=== PATIENT | male | born 1955 | race Caucasian/White ===

== ENCOUNTER 2020-07-20 15:48 | Observation (INO) | payer BC ==
[2020-07-20 17:46] LABS: #Eosinphils 0.1 thou/uL (0.0-0.7); #Lymphocytes 2.1 thou/uL (1.20-3.40); #Monocytes 0.5 thou/uL (0.11-0.59); #Neutrophils 4.6 thou/uL (1.40-6.50); %Basophils 0.6 % (0.0-1.0); %Eosinophils 1.6 % (0.0-10.0); %Lymphocytes 28.6 % (21.0-51.0); %Monocytes 6.5 % (0.0-10.0); %Neutrophils 62.8 % (42.0-75.0); Hemoglobin 14.9 g/dL (14.0-18.0); Mean Corpuscular HGB CONC 33.4 g/dL (32.0-36.0); Mean Corpuscular Hemoglobin 31.2 pg (27.0-31.0); Mean Corpuscular Volume 93.4 fL (78.0-98.0); Mean Platelet Volume 9.5 fL (7.4-10.4); Platelet Count 194 thou/uL (130-400); RBC Distribution Width 12.5 % (11.5-14.5); Red Blood Cell (RBC) Count 4.76 mill/uL (4.70-6.10); White Blood Cell (WBC) Count 7.4 thou/uL (4.8-10.8)
[2020-07-20 18:00] LABS: ALT (SGPT) 29 U/L (8-55); AST (SGOT) 22 U/L (5-34); Albumin 4.3 g/dL (3.4-4.8); Alkaline Phosphatase 64 U/L (40-110); Anion Gap 12 mmol/L (10-20); BUN (Urea Nitrogen) 21 mg/dL (8.4-25.7); Bilirubin, Total 0.5 mg/dL (0.2-1.2); Calc. Creatinine Clearance 0 mL/min (70-130); Carbon Dioxide 21 mmol/L (23-31); Chloride 108 mmol/L (98-107); Glucose 90 mg/dL (80-115); Protein, Total 7.3 g/dL (5.8-8.1); Sodium 137 mmol/L (136-145)
[2020-07-20 18:10] VITALS: BMI 37.0
[2020-07-20 19:34] LABS: SARS-CoV-2 NAA Rapid Test Not Detected (NotDetected)
[2020-07-21] MEDS ORDERED: Nitroglycerin 100MG/250ML BOT 250 ML ONE (06:42)
[2020-07-21] MEDS ORDERED: Verapamil 5 MG/2 ML VIAL ONE (06:42)
[2020-07-21] MEDS ORDERED: Lidocaine 1% (PF) 30 ML VIAL ONE (06:42)
[2020-07-21] MEDS ORDERED: Heparin 10,000 UNITS/ 10 ML VIAL ONE ×2 (06:42→08:18)
[2020-07-21] MEDS ORDERED: Fentanyl 100 MCG/2 ML VIAL ONE (07:19)
[2020-07-21] MEDS ORDERED: Midazolam HCl 2 mg/2 ml Vial ONE (07:19)
[2020-07-21] MEDS ORDERED: Adenosine 6 MG/2 ML VIAL ONE (07:43)
[2020-07-21] MEDS ORDERED: Clopidogrel Bisulfate 300 MG TAB ONE (08:16)
[2020-07-21] MEDS ORDERED: Sodium Chloride 0.9% 1,000 ML IV SCH (08:30)
[2020-07-21] MEDS ORDERED: Iopamidol 370 76% 100 ML VIAL ONE (11:36)
--- NOTE | 2020-07-21 14:06 | PRG ---
DATE OF SERVICE: 07/21/2020 REQUESTING PHYSICIAN: Dr. Shah. SUBJECTIVE: Mr. Fischer seems to be doing fair after his left heart catheterization. He has no bleeding issues. No stroke-like symptoms. No recurrent palpitation. OBJECTIVE DATA: VITAL SIGNS: The blood pressure is 147/90, heart rate 76, respirations 18, and temperature 97.5 degrees Fahrenheit. GENERAL: He is an alert and oriented man, in no apparent distress. NECK: Supple. Jugular vein is not distended. CHEST: Coarse without crackles. HEART: Sounds are regular to rate and rhythm. No murmur or gallop. ABDOMEN: Benign. Bowel sounds positive. EXTREMITIES: Lower extremities without edema, clubbing, or cyanosis. Pulses are adequate. NEUROLOGIC: The patient is nonfocal. MUSCULOSKELETAL: Without joint swelling deformity. SKIN: Without rash. DATABASE: The telemetry strips were reviewed, revealing continuous sinus rhythm. No tachy or bradyarrhythmias are detected. The left heart catheterization was reviewed revealing circumflex territory stenosis status post stent placement by Dr. Shah this morning. 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 He has had recurrent syncopal spells in the fall, but now he presents with an episode of wide-complex tachyarrhythmia. The rhythm strips available to me makes it difficult to discern between ventricular tachycardia or supraventricular tachycardia with aberration. I explained these findings to him. Now, he has been freshly revascularized as per Dr. Shah's procedure. We discussed the option of expedited EP study to aid the diagnosis of the tachycardia. On the other hand, if it is fresh re-vascularization and plavix load, extensive EP procedures may not be optimally done today. At this point, he would prefer postponing this diagnostic and possibly invasive therapeutic intervention. I discussed the potential risk of recurrent tachyarrhythmias and the LifeVest therapy as a strong consideration for him. Also, will need to be monitored for bradyarrhythmias with the Life Vest monitor. Low-dose jacklyn likely would be reasonable to resume at metoprolol 25 mg twice a day. At this point, I would avoid amiodarone for current treatment. Should further tachyarrhythmia occur, he will clearly need to expedite the above procedures. Would like to see him back in the next 4 to 6 weeks. Discussed these issues with Dr. Shah and we are in agreement. Thank you again for allowing me to participate in the care of this patient. Job ID: [id number] MTDD
--- NOTE | 2020-07-21 14:27 | DIS ---
DATE OF ADMISSION: 07/20/2020 DATE OF DISCHARGE: 07/21/2020 DISCHARGE DIAGNOSES: 1. Sustained ventricular tachycardia. 2. Coronary artery disease. CONSULTATION: EP. PROCEDURE PERFORMED: Coronary angiography with stent placement to the circumflex artery with a 3 x 16 mm Synergy stent. HOSPITAL COURSE: Mr. Fischer is a very pleasant 65-year-old gentleman, who recently presented to an outpatient hospital with sustained wide-complex tachycardia suggesting ventricular tachycardia. He was given amiodarone. He was stabilized and discharged the following day. He followed up with us the day after discharge. After review of his EKG, which was very suggestive of ventricular tachycardia, it was decided to proceed with the admission. Mr. Fischer did have a previous stress study suggesting ischemia to the inferior wall. He underwent coronary angiography on 07/21/2020 and was found to have severe disease present of the circumflex artery. He underwent successful stent placement with a 3.0 x 16 mm stent. EP was consulted for possible EP study. Based on his high-dose Plavix for stent placement and heparin, it was decided to proceed with LifeVest and see if the patient has recurrent episodes after revascularization. The patient is to follow up with Dr. Garcia for further recommendations. DISCHARGE MEDICATIONS: 1. Plavix 75 q.a.m. 2. Aspirin 81 q.a.m. 3. Lipitor 40 at bedtime. 4. Metoprolol 25 b.i.d. CONDITION ON DISCHARGE: Stable. Job ID: [id number]
--- NOTE | 2020-07-21 14:46 | CON ---
DATE OF CONSULTATION: 07/20/2020 REASON FOR CONSULTATION: I am seeing Mr. Fischer at our [facility] office for electrophysiology consultation. His problems are: 1. Recurrent syncopal spells. 2. Rhythm strip documented wide-complex tachycardia. 3. Chronic right bundle-branch block with left axis deviation. 4. History of normal LVEF by recent echocardiogram at Dr. Shah's office per his report. 5. History of hypertension. ALLERGIES: NONE NOTED. MEDICATIONS: At home, included: 1. Aspirin 325 mg daily. 2. Losartan 100 mg a day. 3. Metoprolol tartrate 25 mg twice a day. SUBJECTIVE: Mr. Fischer is here directly admitted by Dr. Shah from his office today. This gentleman has had recurrent syncopal spells and was evaluated by Dr. Shah back last fall. At that point, negative workup was found as per the patient's report. He was on chronic beta-jacklyn therapy due to his bifascicular block. Beta-jacklyn medications were stopped despite he had an episode of rapid palpitations, associated near syncopal spell, chest tightness sensation as of two days ago. He was evaluated at the [facility] where pediatric dental assistant has seen him and recommended possible EP evaluation later. He decided to come to Dr. Shah's office for further evaluation and he was subsequently admitted. Plans are made for left heart catheterization tomorrow. Currently, he has no palpitations, dizziness, loss of consciousness. No chest pains or CHF like symptoms. No fever, chills, or cough. REVIEW OF SYSTEMS: Rest of 12-point review of systems otherwise unremarkable. PAST MEDICAL HISTORY: As above, he had no prior history of symptomatic heart disease or heart attacks. SOCIAL HISTORY: The patient is a nonsmoker. Denies EtOH or drug abuse. He is a retired intensive care nurse. FAMILY HISTORY: Not contributory, but is positive for coronary artery disease and stroke and cancer of the mother and coronary artery disease and stroke of the father. OBJECTIVE DATA: VITAL SIGNS: Blood pressure is 142/91, heart rate 80, respirations 18, and temperature 98.3 degrees Fahrenheit. GENERAL: This is an alert and oriented man, in no apparent distress. NECK: Supple. Jugular veins not distended. CHEST: Coarse without crackles. HEART: Sounds are regular to rate and rhythm. No murmur or gallop. ABDOMEN: Benign. Bowel sounds are positive. EXTREMITIES: Lower extremities without edema, clubbing, or cyanosis. Pulses are adequate. NEUROLOGIC: The patient is nonfocal. MUSCULOSKELETAL: Without joint swelling or deformities. SKIN: Without rash. DATABASE: BMI is 37 with weight 265 pounds. The EKG is reviewed, revealing sinus rhythm, first-degree AV block, right bundle-branch block with slight left axis deviation is seen. The telemetry so far reveals sinus rhythm LABORATORY DATA: White count 7.4, hemoglobin 20.9, and platelet count is 194. Sodium 137, potassium 4, BUN is 21, and creatinine 1.27. The telemetry strips from the patient's during the episode of tachycardia were reviewed, revealing a wide-complex tachycardia with difficult to ascertain PVA. Only single lead is available and no clear clues regarding ventricular tachycardia versus SVT with aberration can be elicited. ASSESSMENT AND PLAN: Mr. Fischer is a pleasant 65-year-old gentleman with history of hypertension and history of preserved left ventricular ejection fraction, who presented after a near-syncopal spell with rapid heartbeat. He has prior history of recurrent syncopal spell last fall, at which point bradycardia with his baseline bifascicular block was suspected as tacos and his beta blockers were stopped. Now being off beta blockers, these rapid tachyarrhythmia occurred with ventricular rates in the 180s. I discussed these issues with him. The exact etiology of his wide-complex arrhythmia is unclear. He has been evaluated in [place]. He was told he may have a supraventricular tachycardia. Due to the wider complex beats, ventricular tachycardia is difficult to rule out. Based on these, Dr. Shah is planning invasive ischemic evaluation with left heart catheterization tomorrow. Providing no significant coronary artery disease or revascularization lesions are found, he may benefit from an EP study for evaluate inducibility of ventricular tachycardia versus SVT. Depending on the findings, either ablation or device therapy could be considered. The study to evaluate his conduction system is based on the baseline trifascicular block. I explained the rationale, risks, and benefits of this procedure, said he understands clearly hence his medical background and willing to proceed. We will keep him n.p.o. after left heart catheterization tomorrow. Thank you again for letting me to participate in the care of this pleasant gentleman. Job ID: [id number]
[2020-07-21 19:35] VITALS: BP 135/82; TEMP 98.3
--- NOTE | 2020-07-21 20:38 | EKG ---
Test Reason : POST STENT Blood Pressure : / mmHG Vent. Rate : 067 BPM Atrial Rate : 067 BPM P-R Int : 228 ms QRS Dur : 128 ms QT Int : 450 ms P-R-T Axes : 014 -71 -01 degrees QTc Int : 475 ms Sinus rhythm with 1st degree A-V block Left axis deviation Right bundle branch block Inferior infarct , age undetermined Abnormal ECG Confirmed by Jerry KHALIL ([id number]) on 07/21/2020 8:38:01 PM Referred By: COLLINS Confirmed By:Jerry KHALIL
[2020-07-21] MEDS ORDERED: Metoprolol Tartrate 25 MG TAB PO SCH ×2 (21:00)
[2020-07-22] MEDS ORDERED: Aspirin 81 mg Enteric Coated Tablet PO SCH (09:00)
[2020-07-22] MEDS ORDERED: Clopidogrel Bisulfate 75 MG TAB PO SCH (09:00)
[2020-07-22] MEDS ORDERED: Losartan 25 MG TAB PO SCH (09:00)
== END 2020-07-21 22:14 | disposition home or self-care (01) ==
LOC: 2NO 16:26
PROVIDERS: ADMIT Internal Medicine Cardiovascular Disease; ATTEND Internal Medicine Cardiovascular Disease
PROC: 027034Z Dilation of Coronary Artery, One Artery with Drug-eluting Intraluminal Device, Percutaneous Approach (ICD-10-PCS; principal; 2020-07-21)
PROC: 4A023N7 Measurement of Cardiac Sampling and Pressure, Left Heart, Percutaneous Approach (ICD-10-PCS; 2020-07-21)
PROC: B2111ZZ Fluoroscopy of Multiple Coronary Arteries using Low Osmolar Contrast (ICD-10-PCS; 2020-07-21)
DX: I25.10 Atherosclerotic heart disease of native coronary artery without angina pectoris (principal); I47.2 Ventricular tachycardia; I44.0 Atrioventricular block, first degree; I45.10 Unspecified right bundle-branch block; I10 Essential (primary) hypertension; R55 Syncope and collapse; Z79.82 Long term (current) use of aspirin; Z79.899 Other long term (current) drug therapy; Z20.822 Contact with and (suspected) exposure to COVID-19
CPT/HCPCS: 76942; 80053; 85025; 85347; 92928; 93005; 93010; 93458; 99152; 99153; C1874; C9600; G0378; J0153; J1644; J2001; J2250; J3010; Q9967; U0002

== ENCOUNTER 2020-08-18 15:06 | Outpatient (CLI) | payer BC ==
[2020-08-18 16:12] LABS: Hemoglobin 15.3 g/dL (13.5-17.5); Mean Corpuscular HGB CONC 33.2 g/dL (32.0-36.0); Mean Corpuscular Hemoglobin 30.8 pg (27.0-33.0); Mean Corpuscular Volume 92.8 fl (81.2-95.1); Mean Platelet Volume 10.9 fl (7.4-10.4); Platelet Count 196 10x3/uL (150-450); RBC Distribution Width 12.4 % (11.5-14.5); Red Blood Cell (RBC) Count 4.97 10x6/uL (4.32-5.72); White Blood Cell (WBC) Count 6.2 10x3/uL (3.5-10.5)
[2020-08-18 16:16] LABS: Anion Gap 12 mmol/L (10-20); BUN (Urea Nitrogen) 17 mg/dL (8.4-25.7); Calc. Creatinine Clearance 0 mL/min (70-130); Calcium 9.7 mg/dL (7.8-10.44); Carbon Dioxide 29 mmol/L (23-31); Chloride 104 mmol/L (98-107); Glucose 82 mg/dL (80-115); Potassium 4.5 mmol/L (3.5-5.1); Sodium 140 mmol/L (136-145)
[2020-08-18 16:17] LABS: Cholesterol 242 mg/dl (< 200 Desired); PTT 27.6 sec (22.0-33.0); Prothrombin Time 10.9 sec (9.5-12.1); Triglycerides 146 mg/dL (Less than 150)
[2020-08-19 02:52] LABS: SARS-CoV-2 PCR by NAA Not Detected (NotDetected)
== END 2020-08-18 15:07 | disposition home or self-care (01) ==
LOC: LABBT 15:06
PROVIDERS: ATTEND Internal Medicine Cardiovascular Disease
DX: Z01.818 Encounter for other preprocedural examination (principal); I82.409 Acute embolism and thrombosis of unspecified deep veins of unspecified lower extremity; Z20.822 Contact with and (suspected) exposure to COVID-19
CPT/HCPCS: 80048; 82465; 84478; 85027; 85610; 85730; 87635; 93005; 93010; U0003; U0005

== ENCOUNTER 2020-08-23 05:44 | Day surgery (SDC) | payer BC ==
[2020-08-22 08:36] VITALS: BMI 36.1
[2020-08-23] MEDS ORDERED: Heparin 10,000 UNITS/ 10 ML VIAL ONE (06:43)
[2020-08-23] MEDS ORDERED: Propofol 1,000 MG/100 ML VIAL IV ONE (07:00)
[2020-08-23] MEDS ORDERED: Fentanyl 100 MCG/2 ML VIAL ONE (07:00)
[2020-08-23] MEDS ORDERED: Midazolam HCl 2 mg/2 ml Vial ONE (07:21)
[2020-08-23] MEDS ORDERED: PROPOFOL 200 MG/20 ML VIAL ONE (07:54)
[2020-08-23] MEDS ORDERED: PHENYLEPHRINE-NS 100 MCG/ML 10 ML SYRINGE ONE (07:54)
[2020-08-23] MEDS ORDERED: Lidocaine 1% PF 5 ML VIAL ONE (07:54)
[2020-08-23] MEDS ORDERED: Isoproterenol 0.2 MG/1 ML AMP ONE (09:04)
[2020-08-23] MEDS ORDERED: Phenylephrine 10 MG/ML VIAL ONE (09:18)
[2020-08-23] MEDS ORDERED: Ondansetron PF 4 MG/2 ML Vial ONE (11:01)
== END 2020-08-23 16:08 | disposition home or self-care (01) ==
LOC: CCL 05:44 → EDSTATUS 15:15 → CCL 16:08
PROVIDERS: ATTEND Internal Medicine Cardiovascular Disease
DX: Z01.818 Encounter for other preprocedural examination (principal); I47.1 Supraventricular tachycardia
CPT/HCPCS: 76942; 93005; 93306; 93613; 93623; 93653; C1730; C1732; J1644; J2250; J2370; J2405; J2704; J3010

== ENCOUNTER 2020-10-09 04:20 | Inpatient (IN) | payer BC ==
[2020-10-09] MEDS ORDERED: Aspirin Chewable 81 MG TAB ONE (04:53)
[2020-10-09 05:35] LABS: #Eosinphils 0.1 thou/uL (0.0-0.7); #Lymphocytes 1.5 thou/uL (1.20-3.40); #Monocytes 0.6 thou/uL (0.11-0.59); #Neutrophils 4.6 thou/uL (1.40-6.50); %Basophils 0.7 % (0.0-1.0); %Eosinophils 0.9 % (0.0-10.0); %Lymphocytes 21.8 % (21.0-51.0); %Monocytes 8.3 % (0.0-10.0); %Neutrophils 68.3 % (42.0-75.0); Hemoglobin 14.7 g/dL (14.0-18.0); Mean Corpuscular HGB CONC 33.1 g/dL (32.0-36.0); Mean Corpuscular Hemoglobin 30.5 pg (27.0-31.0); Mean Corpuscular Volume 92.1 fL (78.0-98.0); Mean Platelet Volume 9.1 fL (7.4-10.4); Platelet Count 176 thou/uL (130-400); RBC Distribution Width 11.5 % (11.5-14.5); Red Blood Cell (RBC) Count 4.82 mill/uL (4.70-6.10); White Blood Cell (WBC) Count 6.7 thou/uL (4.8-10.8)
[2020-10-09 05:58] LABS: ALT (SGPT) 61 U/L (8-55); AST (SGOT) 54 U/L (5-34); Albumin 3.6 g/dL (3.4-4.8); Alkaline Phosphatase 82 U/L (40-110); Anion Gap 11 mmol/L (10-20); BUN (Urea Nitrogen) 22 mg/dL (8.4-25.7); Bilirubin, Total 0.4 mg/dL (0.2-1.2); Calc. Creatinine Clearance 0 mL/min (70-130); Carbon Dioxide 22 mmol/L (23-31); Chloride 109 mmol/L (98-107); Globulin 2.8 g/dL (2.4-3.5); Glucose 113 mg/dL (80-115); Potassium 4.1 mmol/L (3.5-5.1); Protein, Total 6.4 g/dL (5.8-8.1); Sodium 138 mmol/L (136-145)
[2020-10-09] MEDS ORDERED: Ondansetron ODT 4 MG TAB PO PRN (07:07)
[2020-10-09] MEDS ORDERED: Ondansetron PF 4 MG/2 ML Vial IVP PRN (07:07)
[2020-10-09] MEDS ORDERED: Acetaminophen 325 MG TAB PO PRN (07:07)
[2020-10-09 07:45] LABS: Troponin I 2.208 ng/mL (< 0.028)
[2020-10-09 07:58] VITALS: BMI 37.9
[2020-10-09] MEDS: Enoxaparin Sodium 40 MG/0.4 ML SYRINGE SC SCH (08:12)
[2020-10-09] MEDS: Aspirin 81 mg Enteric Coated Tablet PO SCH (08:12)
[2020-10-09] MEDS: Metoprolol Tartrate 100 MG TAB PO SCH ×2 (08:13→12:16)
[2020-10-09] MEDS: Losartan 25 MG TAB PO SCH (08:13)
[2020-10-09] MEDS: Clopidogrel Bisulfate 75 MG TAB PO SCH (08:13)
[2020-10-09] MEDS: Metoprolol Tartrate 50 MG TAB PO SCH ×2 (10:02→20:48)
[2020-10-09 10:37] LABS: CKMB 20.9 ng/mL (0-6.6); Troponin I 2.993 ng/mL (< 0.028)
[2020-10-09 16:16] LABS: SARS-CoV-2 PCR by NAA Not Detected (NotDetected)
[2020-10-10 05:11] LABS: #Basophils 0.1 thou/uL (0.0-0.2); #Eosinphils 0.2 thou/uL (0.0-0.7); #Lymphocytes 1.9 thou/uL (1.20-3.40); #Monocytes 0.5 thou/uL (0.11-0.59); #Neutrophils 2.2 thou/uL (1.40-6.50); %Basophils 1.2 % (0.0-1.0); %Eosinophils 3.5 % (0.0-10.0); %Lymphocytes 39.6 % (21.0-51.0); %Monocytes 9.5 % (0.0-10.0); %Neutrophils 46.2 % (42.0-75.0); Mean Corpuscular HGB CONC 34.1 g/dL (32.0-36.0); Mean Corpuscular Hemoglobin 31.7 pg (27.0-31.0); Mean Platelet Volume 9.6 fL (7.4-10.4); Platelet Count 137 thou/uL (130-400); RBC Distribution Width 11.5 % (11.5-14.5); Red Blood Cell (RBC) Count 4.41 mill/uL (4.70-6.10); White Blood Cell (WBC) Count 4.7 thou/uL (4.8-10.8)
[2020-10-10 05:30] LABS: Anion Gap 12 mmol/L (10-20); BUN (Urea Nitrogen) 17 mg/dL (8.4-25.7); Calc. Creatinine Clearance 112 mL/min (70-130); Calcium 8.7 mg/dL (7.8-10.44); Carbon Dioxide 23 mmol/L (23-31); Chloride 107 mmol/L (98-107); Glucose 84 mg/dL (80-115); Potassium 3.9 mmol/L (3.5-5.1); Sodium 138 mmol/L (136-145)
[2020-10-10] MEDS: Aspirin 81 mg Enteric Coated Tablet PO SCH (09:06)
[2020-10-10] MEDS: Losartan 25 MG TAB PO SCH (09:06)
[2020-10-10] MEDS: Clopidogrel Bisulfate 75 MG TAB PO SCH (09:06)
[2020-10-10] MEDS: Metoprolol Tartrate 50 MG TAB PO SCH ×2 (12:07→15:38)
[2020-10-10] MEDS: Enoxaparin Sodium 40 MG/0.4 ML SYRINGE SC SCH (12:07)
[2020-10-11 04:55] LABS: #Eosinphils 0.1 thou/uL (0.0-0.7); #Lymphocytes 1.6 thou/uL (1.20-3.40); #Monocytes 0.5 thou/uL (0.11-0.59); #Neutrophils 2.2 thou/uL (1.40-6.50); %Basophils 0.9 % (0.0-1.0); %Eosinophils 3.4 % (0.0-10.0); %Lymphocytes 35.6 % (21.0-51.0); %Neutrophils 50.1 % (42.0-75.0); Hemoglobin 14.4 g/dL (14.0-18.0); Mean Corpuscular HGB CONC 32.9 g/dL (32.0-36.0); Mean Corpuscular Hemoglobin 30.7 pg (27.0-31.0); Mean Corpuscular Volume 93.1 fL (78.0-98.0); Platelet Count 145 thou/uL (130-400); RBC Distribution Width 11.4 % (11.5-14.5); White Blood Cell (WBC) Count 4.5 thou/uL (4.8-10.8)
[2020-10-11 06:19] LABS: Anion Gap 12 mmol/L (10-20); BUN (Urea Nitrogen) 16 mg/dL (8.4-25.7); Calc. Creatinine Clearance 111 mL/min (70-130); Calcium 8.9 mg/dL (7.8-10.44); Carbon Dioxide 23 mmol/L (23-31); Chloride 108 mmol/L (98-107); Glucose 95 mg/dL (80-115); Potassium 3.9 mmol/L (3.5-5.1); Sodium 139 mmol/L (136-145)
[2020-10-11] MEDS: Losartan 25 MG TAB PO SCH (08:21)
[2020-10-11] MEDS: Clopidogrel Bisulfate 75 MG TAB PO SCH (08:22)
[2020-10-11] MEDS: Aspirin 81 mg Enteric Coated Tablet PO SCH (08:22)
[2020-10-11] MEDS: Metoprolol Tartrate 50 MG TAB PO SCH ×2 (08:27→22:31)
[2020-10-11] MEDS ORDERED: Propofol 1,000 MG/100 ML VIAL IV ONE ×2 (12:16→13:32)
[2020-10-11] MEDS ORDERED: Heparin 10,000 UNITS/ 10 ML VIAL ONE (12:21)
[2020-10-11] MEDS ORDERED: Lidocaine 1% (PF) 30 ML VIAL ONE ×2 (12:21→14:40)
[2020-10-11] MEDS ORDERED: PHENYLEPHRINE-NS 100 MCG/ML 10 ML SYRINGE ONE (12:34)
[2020-10-11] MEDS ORDERED: PROPOFOL 200 MG/20 ML VIAL ONE (12:34)
[2020-10-11] MEDS ORDERED: Propofol 500 MG/50 ML VIAL ONE (12:57)
[2020-10-11] MEDS ORDERED: Phenylephrine 10 MG/ML VIAL ONE ×2 (12:59→14:57)
[2020-10-11] MEDS ORDERED: Gentamicin 80 MG/2 ML VIAL ONE (14:25)
[2020-10-11] MEDS ORDERED: CEFAZOLIN 1 GM VIAL ONE (14:25)
[2020-10-11] MEDS ORDERED: Amiodarone 150 MG/3 ML VIAL ONE (14:25)
[2020-10-11] MEDS ORDERED: ePHEDrine Sulfate 50 MG/10 ML VIAL ONE (16:24)
[2020-10-11] MEDS ORDERED: Fentanyl 100 MCG/2 ML VIAL ONE (16:38)
[2020-10-11] MEDS ORDERED: Acetaminophen/Codeine 30-300mg Tablet PO PRN (17:15)
[2020-10-11] MEDS ORDERED: Lidocaine 5% Patch TD SCH (17:45)
[2020-10-11] MEDS: Cephalexin 250 MG CAP PO SCH (22:31)
[2020-10-12 04:37] LABS: #Eosinphils 0.1 thou/uL (0.0-0.7); #Lymphocytes 1.6 thou/uL (1.20-3.40); #Monocytes 0.6 thou/uL (0.11-0.59); #Neutrophils 5.2 thou/uL (1.40-6.50); %Basophils 0.4 % (0.0-1.0); %Eosinophils 0.9 % (0.0-10.0); %Lymphocytes 20.7 % (21.0-51.0); %Monocytes 7.8 % (0.0-10.0); %Neutrophils 70.2 % (42.0-75.0); Hemoglobin 13.6 g/dL (14.0-18.0); Mean Corpuscular HGB CONC 33.4 g/dL (32.0-36.0); Mean Corpuscular Hemoglobin 31.5 pg (27.0-31.0); Mean Corpuscular Volume 94.3 fL (78.0-98.0); Mean Platelet Volume 9.8 fL (7.4-10.4); Platelet Count 138 thou/uL (130-400); RBC Distribution Width 11.4 % (11.5-14.5); Red Blood Cell (RBC) Count 4.33 mill/uL (4.70-6.10); White Blood Cell (WBC) Count 7.5 thou/uL (4.8-10.8)
[2020-10-12 04:54] LABS: Anion Gap 11 mmol/L (10-20); BUN (Urea Nitrogen) 13 mg/dL (8.4-25.7); Calc. Creatinine Clearance 100 mL/min (70-130); Calcium 8.5 mg/dL (7.8-10.44); Carbon Dioxide 27 mmol/L (23-31); Chloride 109 mmol/L (98-107); Glucose 86 mg/dL (80-115); Potassium 4.4 mmol/L (3.5-5.1); Sodium 143 mmol/L (136-145)
[2020-10-12] MEDS: Acetaminophen/Codeine 30-300mg Tablet PO PRN ×2 (05:59→13:30)
[2020-10-12] MEDS ORDERED: Transdermal Patch Removal TOP SCH (06:00)
[2020-10-12] MEDS: Losartan 25 MG TAB PO SCH (08:44)
[2020-10-12] MEDS: Clopidogrel Bisulfate 75 MG TAB PO SCH (08:44)
[2020-10-12] MEDS: Cephalexin 250 MG CAP PO SCH ×2 (08:44→13:30)
[2020-10-12] MEDS: Metoprolol Tartrate 50 MG TAB PO SCH (08:45)
[2020-10-12] MEDS: Aspirin 81 mg Enteric Coated Tablet PO SCH (08:45)
[2020-10-12 08:57] LABS: #Basophils 0.1 thou/uL (0.0-0.2); #Eosinphils 0.1 thou/uL (0.0-0.7); #Lymphocytes 1.4 thou/uL (1.20-3.40); #Monocytes 0.5 thou/uL (0.11-0.59); #Neutrophils 4.9 thou/uL (1.40-6.50); %Basophils 0.9 % (0.0-1.0); %Eosinophils 1.2 % (0.0-10.0); %Lymphocytes 20.5 % (21.0-51.0); %Monocytes 7.2 % (0.0-10.0); %Neutrophils 70.2 % (42.0-75.0); Hemoglobin 13.7 g/dL (14.0-18.0); Mean Corpuscular HGB CONC 33.6 g/dL (32.0-36.0); Mean Corpuscular Hemoglobin 31.6 pg (27.0-31.0); Mean Corpuscular Volume 94.1 fL (78.0-98.0); Mean Platelet Volume 9.6 fL (7.4-10.4); Platelet Count 127 thou/uL (130-400); RBC Distribution Width 11.4 % (11.5-14.5); Red Blood Cell (RBC) Count 4.34 mill/uL (4.70-6.10)
[2020-10-12 09:35] LABS: Anion Gap 11 mmol/L (10-20); BUN (Urea Nitrogen) 13 mg/dL (8.4-25.7); Calc. Creatinine Clearance 96 mL/min (70-130); Calcium 8.4 mg/dL (7.8-10.44); Carbon Dioxide 25 mmol/L (23-31); Chloride 108 mmol/L (98-107); Glucose 90 mg/dL (80-115); Magnesium 2.1 mg/dL (1.6-2.6); Potassium 4.4 mmol/L (3.5-5.1); Sodium 140 mmol/L (136-145)
[2020-10-12] MEDS ORDERED: Famotidine/PF 20 mg/2ml Vial SLOW IVP SCH (11:02)
[2020-10-12 11:45] LABS: Lactic Acid 1.1 mmol/L (0.5-2.2)
[2020-10-12 12:00] LABS: Troponin I 0.876 ng/mL (< 0.028)
[2020-10-12 12:22] VITALS: BP 133/68; TEMP 98.1
== END 2020-10-12 15:00 | disposition home or self-care (01) | DRG 227 ==
LOC: ERS 04:20 → 2NO 04:50 → INTOOBSV 04:50 → OBSVTOIN 10-10 14:32
PROVIDERS: ADMIT Internal Medicine; ATTEND Internal Medicine
PROC: 0JH608Z Insertion of Defibrillator Generator into Chest Subcutaneous Tissue and Fascia, Open Approach (ICD-10-PCS; principal; 2020-10-11)
PROC: 02HK3KZ Insertion of Defibrillator Lead into Right Ventricle, Percutaneous Approach (ICD-10-PCS; 2020-10-11)
PROC: 02H63KZ Insertion of Defibrillator Lead into Right Atrium, Percutaneous Approach (ICD-10-PCS; 2020-10-11)
PROC: 4A023FZ Measurement of Cardiac Rhythm, Percutaneous Approach (ICD-10-PCS; 2020-10-11)
PROC: 4A0234Z Measurement of Cardiac Electrical Activity, Percutaneous Approach (ICD-10-PCS; 2020-10-11)
PROC: 02K83ZZ Map Conduction Mechanism, Percutaneous Approach (ICD-10-PCS; 2020-10-11)
PROC: 5A2204Z Restoration of Cardiac Rhythm, Single (ICD-10-PCS; 2020-10-11)
DX: I47.1 Supraventricular tachycardia (principal); I42.8 Other cardiomyopathies; I50.22 Chronic systolic (congestive) heart failure; I25.10 Atherosclerotic heart disease of native coronary artery without angina pectoris; I48.92 Unspecified atrial flutter; I47.2 Ventricular tachycardia; Z95.5 Presence of coronary angioplasty implant and graft; Z88.8 Allergy status to other drugs, medicaments and biological substances; Z79.82 Long term (current) use of aspirin; Z79.02 Long term (current) use of antithrombotics/antiplatelets; I25.2 Old myocardial infarction; E66.9 Obesity, unspecified; Z85.828 Personal history of other malignant neoplasm of skin; Z85.850 Personal history of malignant neoplasm of thyroid; Z82.49 Family history of ischemic heart disease and other diseases of the circulatory system; E78.5 Hyperlipidemia, unspecified; I44.7 Left bundle-branch block, unspecified; I11.0 Hypertensive heart disease with heart failure; Z68.37 Body mass index [BMI] 37.0-37.9, adult
CPT/HCPCS: 33249; 36415; 36416; 71045; 76942; 80048; 80053; 82553; 83605; 83735; 84484; 85025; 87635; 92960; 93005; 93010; 93306; 93620; 93623; 96372; C1721; C1730; C1732; C1777; C1898; G0378; J0282; J0690; J1580; J1644; J1650; J2001; J2370; J2704; J3010; S0028; U0003; U0005